=== PATIENT | male | born 1955 | race Caucasian/White ===

== ENCOUNTER 2016-08-02 10:45 | Emergency (ER) | payer SELFPAY ==
[~2016-08-02] VITALS: Ht 182.9 cm; Wt 100.0 kg
[2016-08-02] MEDS ORDERED: cloNIDine HCL 0.2 MG TAB PO ONE (11:00)
--- NOTE | 2016-08-02 11:07 | PD ---
HPI Chief Complaint: Hypertension Time Seen by Provider: 10:55 Travel History International Travel<30 days: No Contact w/Intl Traveler<30days: No Traveled to known affect area: No History of Present Illness HPI This patient went to his behavioral clinic where he gets depression counseling. They checked his blood pressure and was very elevated so they told him to come here. He does not have any physical symptoms but his blood pressure is 212 systolic. He does not take medication for blood pressure. He does not go to physicians. He is a cigarette smoker and a heavy alcohol consumer. Denies drug use. Denies suicidal thought. He does not have headache or chest pain or presyncopal symptoms. Symptoms severity is mild. No alleviating factors. Duration is unclear as she does have periodic very elevated blood pressures. He says on a good day it's 150/100 but can get as high as 200 very commonly. PFSH Social History Alcohol Use: Yes Tobacco Use: Yes Substance Use: No Allergies-Medications (Allergen,Severity, Reaction): Coded Allergies: No Known Allergies (Unverified , 08/02/16) Reported Meds & Prescriptions Reported Meds & Active Scripts Active Lisinopril 10 Mg Tab 10 Mg PO DAILY Review of Systems General / Constitutional: No: Fever Eyes: No: Visual changes HENT: No: Headaches Cardiovascular: No: Chest Pain or Discomfort Respiratory: No: Shortness of Breath Gastrointestinal: No: Abdominal Pain Genitourinary: No: Dysuria Musculoskeletal: No: Pain Skin: No Rash Neurologic: No: Weakness Psychiatric: Positive: Depression Endocrine: No: Polydipsia Hematologic/Lymphatic: No: Easy Bruising Physical Exam Narrative GENERAL: Well-nourished, well-developed patient in no apparent distress. SKIN: Warm and dry. HEAD: Atraumatic. Normocephalic. EYES: Pupils equal and round. No scleral icterus. No injection or drainage. ENT: No nasal bleeding or discharge. Mucous membranes pink and moist. NECK: Trachea midline. No JVD. CARDIOVASCULAR: Regular rate and rhythm. No murmur appreciated. RESPIRATORY: No accessory muscle use. Clear to auscultation. Breath sounds equal bilaterally. GASTROINTESTINAL: Abdomen soft, non-tender, nondistended. Hepatic and splenic margins not palpable. MUSCULOSKELETAL: No obvious deformities. No clubbing. No cyanosis. No edema. NEUROLOGICAL: Awake and alert. No obvious cranial nerve deficits. Motor grossly within normal limits. Normal speech. PSYCHIATRIC: Depressed mood with normal seeking affect; insight and judgment normal. Data Data Last Documented VS Vital Signs Date Time Temp Pulse Resp B/P Pulse Ox O2 Delivery O2 Flow Rate FiO2 08/02/16 12:15 78 20 156/111 97 Room Air Orders Clonidine (Catapres) (08/02/16 11:00) MDM Medical Decision Making Medical Screen Exam Complete: Yes Emergency Medical Condition: Yes Medical Record Reviewed: Yes Differential Diagnosis Accelerated hypertension, noncompliance, elevated blood pressure Narrative Course I have reviewed the patient's electronic medical record. Blood pressure 212 systolic. I gave him a dose of clonidine. Will reassess later. Discussed that he needs to quit his cigarette and alcohol abuse and check his blood pressure daily and go to her primary physician It sounds like he has long-standing hypertension rather than an isolated event today We'll prescribe him some lisinopril to start while he searches for primary physician Blood pressure on recheck is 150 systolic, much improved Diagnosis Primary Impression: Accelerated hypertension Additional Instructions: The patient was advised to follow up with their physician and return if they worsen. Avoid smoking and alcohol drinking Check and record blood pressure daily Med/Other Pt SpecificInfo: Prescription(s) given Scripts Lisinopril 10 Mg Tab10 Mg PO DAILY #30 TAB Ref 0 Prov:González Dodge MD 08/02/16 Disposition: 01 DISCHARGE HOME Condition: Stable González Dodge MD Aug 02, 2016 11:07
[2016-08-02 11:18] VITALS: BP 212/132; PULSE 88; RESP 20; O2SAT 97
[2016-08-02 11:39] VITALS: BP 207/123; PULSE 77; RESP 20; O2SAT 97
[2016-08-02 12:04] VITALS: BP 171/113; PULSE 82; RESP 20; O2SAT 97
[2016-08-02 12:15] VITALS: BP 156/111; PULSE 78; RESP 20; O2SAT 97
[2016-08-02] MEDS ORDERED: LISI10TA3 PO (12:47)
== END 2016-08-02 13:04 | disposition home or self-care (01) ==
LOC: NEPB 10:45
DX: I10 Essential (primary) hypertension (principal); Z72.0 Tobacco use
CPT/HCPCS: 99283